=== PATIENT | male | born 1960 | race Caucasian/White ===

== ENCOUNTER 2016-11-23 15:48 | Emergency (ER) | payer BC ==
[~2016-11-23] VITALS: Ht 177.8 cm; Wt 83.0 kg
[2016-11-23 16:05] VITALS: BP 252/146; PULSE 77; RESP 16; TEMP 99.7; O2SAT 98
--- NOTE | 2016-11-23 16:23 | PD ---
HPI Chief Complaint: Abnormal Results Time Seen by Provider: 16:09 Travel History International Travel<30 days: No Contact w/Intl Traveler<30days: No Traveled to known affect area: No History of Present Illness HPI 56-year-old male states that he went to have a dental implant for his missing tooth and when they checked his blood pressure they advised him to come to the emergency room. He states that he hasn't had his blood pressure checked for 10 years. He denies any current symptoms at this time and states he would not be here if they did not tell him to come here. He states 10 years ago when he had his pressure checked he had a full cardiac evaluation and it was normal and they attributed his symptoms of feeling ill secondary to him from his than . Quality is elevated. Severity is significantly elevated. He denies specific modifying factors. PFSH Past Medical History Medical History: Denies Significant Hx Past Surgical History Surgical History: No Previous Surgery Social History Alcohol Use: Yes (OCCASIONALLY) Tobacco Use: Yes (CIGAR, OCASSIONALLY) Substance Use: No Allergies-Medications (Allergen,Severity, Reaction): Coded Allergies: No Known Allergies (Verified Allergy, Unknown, 11/23/16) Reported Meds & Prescriptions Reported Meds & Active Scripts Active Penicillin V Potassium 500 Mg Tab 500 Mg PO Q12HR 7 Days Norvasc (Amlodipine Besylate) 5 Mg Tab 5 Mg PO DAILY Review of Systems Except as stated in HPI: all other systems reviewed are Neg Physical Exam Narrative GENERAL: Well-nourished, well-developed patient. Well-appearing SKIN: Warm and dry. HEAD: Normocephalic and atraumatic. EYES: No injection or drainage. ENT: No nasal drainage noted. Upper central tooth missing without associated infection surrounding NECK: Supple, trachea midline. CARDIOVASCULAR: Regular rate and rhythm RESPIRATORY: Breath sounds equal bilaterally. No accessory muscle use. GASTROINTESTINAL: Abdomen nondistended. EXTREMITIES: No edema. NEUROLOGICAL: Awake and alert. Motor and sensory grossly within normal limits. Normal speech. Data Data Last Documented VS Vital Signs Date Time Temp Pulse Resp B/P (MAP) Pulse Ox O2 Delivery O2 Flow Rate FiO2 11/23/16 17:01 67 20 200/124 (149) 97 11/23/16 16:05 99.7 Orders Orders Complete Blood Count With Diff (11/23/16 16:18) Basic Metabolic Panel (Bmp) (11/23/16 16:18) Iv Access Insert/Monitor (11/23/16 16:18) Ecg Monitoring (11/23/16 16:18) Oximetry (11/23/16 16:18) Amlodipine (Norvasc) (11/23/16 16:30) Labs Laboratory Tests Test 11/23/16 16:25 White Blood Count 14.0 TH/MM3 Red Blood Count 5.38 MIL/MM3 Hemoglobin 16.1 GM/DL Hematocrit 48.7 % Mean Corpuscular Volume 90.4 FL Mean Corpuscular Hemoglobin 29.9 PG Mean Corpuscular Hemoglobin Concent 33.1 % Red Cell Distribution Width 14.4 % Platelet Count 279 TH/MM3 Mean Platelet Volume 7.7 FL Neutrophils (%) (Auto) 79.5 % Lymphocytes (%) (Auto) 15.3 % Monocytes (%) (Auto) 4.2 % Eosinophils (%) (Auto) 0.7 % Basophils (%) (Auto) 0.3 % Neutrophils # (Auto) 11.2 TH/MM3 Lymphocytes # (Auto) 2.1 TH/MM3 Monocytes # (Auto) 0.6 TH/MM3 Eosinophils # (Auto) 0.1 TH/MM3 Basophils # (Auto) 0.0 TH/MM3 CBC Comment DIFF FINAL Differential Comment Blood Urea Nitrogen 10 MG/DL Creatinine 1.10 MG/DL Random Glucose 91 MG/DL Calcium Level 9.0 MG/DL Sodium Level 136 MEQ/L Potassium Level 3.4 MEQ/L Chloride Level 102 MEQ/L Carbon Dioxide Level 26.4 MEQ/L Anion Gap 8 MEQ/L Estimat Glomerular Filtration Rate 69 ML/MIN [facility] Medical Decision Making Medical Screen Exam Complete: Yes Emergency Medical Condition: Yes Medical Record Reviewed: Yes (past history confirmed) Interpretation(s) CBC & BMP Diagram 11/23/16 16:25 Calcium Level 9.0 Differential Diagnosis Hypertension, renal failure, blood pressure cuff reading failure Narrative Course Will check blood work and dose with Norvasc and reevaluate. Will start on penicillin for possible early dental infection given elevated white count and mild pain around area where tooth has been missing. Patient agrees to close outpatient following of his blood pressure and given return instructions. Blood pressure has improved some here with first dose of Norvasc. Patient denies any new complaints and states that they are feeling better. Patient happy with care, all questions answered. Patient knows that follow up is incumbent on them and to return to the emergency room immediately if new or worsening symptoms develop. Patient given strict return precautions, vitals reviewed and are normal, agrees to further workup as an outpatient. Diagnosis Primary Impression: Elevated blood pressure reading Patient Instructions: General Instructions Additional Instructions: return as needed, keep blood pressure log, tylenol as needed for pain, follow with primary this week Med/Other Pt SpecificInfo: Prescription(s) given Scripts Penicillin V Potassium (Penicillin V Potassium) 500 Mg Tab 500 MG PO Q12HR for Infection for 7 Days, TAB 0 Refills Prov: Christine Calhoun MD 11/23/16 Amlodipine (Norvasc) 5 Mg Tab 5 MG PO DAILY for Blood Pressure Management, #30 TAB 0 Refills Prov: Christine Calhoun MD 11/23/16 Disposition: 01 DISCHARGE HOME Condition: Stable Christine Calhoun MD Nov 23, 2016 16:23
[2016-11-23 16:24] VITALS: O2SAT 97
[2016-11-23] MEDS ORDERED: amLODIPine BESYLATE 5 MG TAB PO ONE (16:30)
[2016-11-23 16:32] LABS: AUTOMATED NEUTROPHIL # 11.2 TH/MM3 (1.8-7.7); BASOPHIL % 0.3 % (0.0-2.0); EOSINOPHIL # 0.1 TH/MM3 (0-0.4); EOSINOPHIL % 0.7 % (0.0-4.0); HEMATOCRIT 48.7 % (39.0-51.0); LYMPH % 15.3 % (9.0-44.0); LYMPHOCYTE # 2.1 TH/MM3 (1.0-4.8); MEAN CELL VOLUME 90.4 FL (80.0-100.0); MEAN CORPUSCULAR HEMOGLOBIN 29.9 PG (27.0-34.0); MEAN CORPUSCULAR HGB CONC 33.1 % (32.0-36.0); MONO % 4.2 % (0.0-8.0); NEUT % 79.5 % (16.0-70.0); PLATELET COUNT 279 TH/MM3 (150-450); RED BLOOD COUNT 5.38 MIL/MM3 (4.50-5.90); RED CELL DISTRIBUTION WIDTH 14.4 % (11.6-17.2)
[2016-11-23 16:34] LABS: HEMO FLAGS DIFF FINAL
[2016-11-23 16:39] LABS: POTASSIUM 3.4 MEQ/L (3.5-5.1)
[2016-11-23 16:42] LABS: BICARBONATE 26.4 MEQ/L (21.0-32.0)
[2016-11-23] MEDS ORDERED: AMLO5 PO (16:50)
[2016-11-23] MEDS ORDERED: PENI500T PO (16:50)
[2016-11-23 17:01] VITALS: BP 200/124; PULSE 67; RESP 20; O2SAT 97
== END 2016-11-23 17:17 | disposition home or self-care (01) ==
LOC: PHED 15:48
DX: R03.0 Elevated blood-pressure reading, without diagnosis of hypertension (principal); F17.200 Nicotine dependence, unspecified, uncomplicated
CPT/HCPCS: 80048; 85025; 99284